=== PATIENT | female | born 1955 | race Caucasian/White ===

== ENCOUNTER 2016-12-26 13:33 | Outpatient (CLI) | payer BC ==
--- NOTE | 2016-12-26 16:19 | MMO ---
BILATERAL SCREENING MAMMOGRAPHY: Date: 12/26/2016 COMPARISON: 11/27/2015, 11/17/2014, 10/29/2013, and 01/10/2012. HISTORY: Screening mammogram. FINDINGS: The patient's mammogram was interpreted with the assistance of computer-aided detection. Breast parenchyma is heterogeneously dense. Benign-appearing calcifications are noted bilaterally. No dominant mass, architectural distortion, or concerning microcalcifications seen. IMPRESSION: BIRADS 2: Benign Finding(s) Recommend annual screening mammography. POS: [facility]
== END 2016-12-26 13:34 | disposition home or self-care (01) ==
LOC: MAMMO 13:33
PROVIDERS: ATTEND Obstetrics & Gynecology
DX: Z12.31 Encounter for screening mammogram for malignant neoplasm of breast (principal)
CPT/HCPCS: 77067; G0202

== ENCOUNTER 2018-02-01 11:07 | Outpatient (CLI) | payer BC | END 2018-02-01 11:08 | disposition home or self-care (01) | LOC: BICMAMMO 11:07 | PROVIDERS: ATTEND Obstetrics & Gynecology | DX: Z12.31 Encounter for screening mammogram for malignant neoplasm of breast (principal); R92.1 Mammographic calcification found on diagnostic imaging of breast; Z98.890 Other specified postprocedural states | CPT/HCPCS: 77063; 77067 ==

== ENCOUNTER 2023-08-11 11:19 | Outpatient (CLI) | payer MEDICARE | END 2023-08-11 11:20 | disposition home or self-care (01) | LOC: BICMAMMO 11:19 | PROVIDERS: ATTEND Family Medicine | DX: Z12.31 Encounter for screening mammogram for malignant neoplasm of breast (principal); Z91.89 Other specified personal risk factors, not elsewhere classified | CPT/HCPCS: 77063; 77067 ==

== ENCOUNTER 2023-09-06 08:29 | Outpatient (CLI) | payer MEDICARE ==
[2023-09-06 09:58] LABS: #Basophils 0.01 10x3/uL (0.0-0.2); #Eosinphils 0.04 10x3/uL (0.0-0.5); #Neutrophils 2.43 10x3/uL (1.5-8.4); %Basophils 0.2 % (0.0-2.0); %Eosinophils 0.8 % (0.0-6.0); %Lymphocytes 39.6 % (18.0-47.0); %Monocytes 8.3 % (0.0-10.0); %Neutrophils 50.7 % (40.0-75.0); Hemoglobin 13.9 g/dL (12.0-15.5); Mean Corpuscular HGB CONC 33.1 g/dL (32.0-36.0); Mean Corpuscular Hemoglobin 30.3 pg (27.0-33.0); Mean Corpuscular Volume 91.5 fL (81.6-98.3); Mean Platelet Volume 11.9 fL (7.4-10.4); Platelet Count 236 10x3/uL (150-450); RBC Distribution Width 13.2 % (11.5-14.5); Red Blood Cell (RBC) Count 4.59 10x6/uL (3.90-5.03); White Blood Cell (WBC) Count 4.8 10x3/uL (3.5-10.5)
[2023-09-06 10:26] LABS: ALT (SGPT) 12 U/L (8-55); AST (SGOT) 19 U/L (5-34); Albumin 4.2 g/dL (3.4-4.8); Alkaline Phosphatase 46 U/L (40-110); Anion Gap 14 mmol/L (10-20); BUN (Urea Nitrogen) 15 mg/dL (9.8-20.1); Bilirubin, Direct 0.2 mg/dL (0.1-0.3); Bilirubin, Total 0.5 mg/dL (0.2-1.2); Calc. Creatinine Clearance 0 mL/min (70-130); Calcium 9.7 mg/dL (7.8-10.44); Carbon Dioxide 24 mmol/L (23-31); Chloride 108 mmol/L (98-107); Estimated GFR 67; Globulin 2.9 g/dL (2.4-3.5); Glucose 87 mg/dL (80-115); Potassium 4.5 mmol/L (3.5-5.1); Protein, Total 7.1 g/dL (5.8-8.1); Sodium 141 mmol/L (136-145)
== END 2023-09-06 08:30 | disposition home or self-care (01) ==
LOC: LABBT 08:29
PROVIDERS: ATTEND Internal Medicine Cardiovascular Disease
DX: Z01.812 Encounter for preprocedural laboratory examination (principal)
CPT/HCPCS: 80053; 80076; 85025

== ENCOUNTER 2023-09-07 05:44 | Day surgery (SDC) | payer MEDICARE ==
[2023-09-06 08:47] VITALS: BMI 32.9
[2023-09-07] MEDS ORDERED: Adenosine 6 mg (2 mL) VIAL ONE (06:18)
[2023-09-07] MEDS ORDERED: Heparin 10,000 UNITS/ 10 ML VIAL ONE (06:18)
[2023-09-07] MEDS ORDERED: Nitroglycerin 50 MG/250 ML BOT 250 ML ONE (06:18)
[2023-09-07] MEDS ORDERED: Verapamil 5 MG/2 ML VIAL ONE (06:24)
[2023-09-07] MEDS ORDERED: Midazolam HCl 2 mg/2 ml Vial ONE (06:51)
[2023-09-07] MEDS ORDERED: fentaNYL 50 mcg/mL 1 mL Vial ONE (06:51)
[2023-09-07] MEDS ORDERED: Iopamidol 370 76% 100 ML VIAL ONE (11:30)
== END 2023-09-07 11:08 | disposition home or self-care (01) ==
LOC: SDC 05:44
PROVIDERS: ATTEND Internal Medicine Cardiovascular Disease
PROC: 4A023N7 Measurement of Cardiac Sampling and Pressure, Left Heart, Percutaneous Approach (ICD-10-PCS; principal; 2023-09-07)
PROC: B215YZZ Fluoroscopy of Left Heart using Other Contrast (ICD-10-PCS; 2023-09-07)
DX: R94.39 Abnormal result of other cardiovascular function study (principal); E78.00 Pure hypercholesterolemia, unspecified; E66.9 Obesity, unspecified; Z79.899 Other long term (current) drug therapy; F32.9 Major depressive disorder, single episode, unspecified; Z68.33 Body mass index [BMI] 33.0-33.9, adult; Z88.5 Allergy status to narcotic agent; Z88.2 Allergy status to sulfonamides
CPT/HCPCS: 80061; 93458; C1769; C1894; J1644; J2250; J3010; 99152; 99153; J0153; Q9967

== ENCOUNTER 2024-10-04 13:37 | Outpatient (CLI) | payer MEDICARE | END 2024-10-04 13:38 | disposition home or self-care (01) | LOC: BICMAMMO 13:37 | PROVIDERS: ATTEND Family Medicine | DX: Z12.31 Encounter for screening mammogram for malignant neoplasm of breast (principal); Z91.89 Other specified personal risk factors, not elsewhere classified | CPT/HCPCS: 77063; 77067 ==

== ENCOUNTER 2025-02-04 14:40 | Outpatient (CLI) | payer MEDICARE | END 2025-02-04 14:41 | disposition home or self-care (01) | LOC: BICMAMMO 14:40 | PROVIDERS: ATTEND Family Medicine | DX: Z78.0 Asymptomatic menopausal state (principal) | CPT/HCPCS: 77080 ==